=== PATIENT | male | born 1965 | race African-American/Black ===

== ENCOUNTER 2018-04-16 19:47 | Inpatient (IN) | payer BC ==
[2018-04-16] MEDS ORDERED: Famotidine/PF 20 mg/2ml Vial ONE (20:01)
[2018-04-16] MEDS ORDERED: Ondansetron PF 4 MG/2 ML Vial ONE (20:01)
[2018-04-16] MEDS ORDERED: Nitroglycerin 2% Ointment 1 INCH/1 GM Packet ONE (20:23)
[2018-04-16 20:34] LABS: ALT (SGPT) 52 U/L (8-55); AST (SGOT) 30 U/L (5-34); Albumin 4.6 g/dL (3.5-5.0); Alkaline Phosphatase 111 U/L (40-150); Anion Gap 20 mmol/L (10-20); BUN (Urea Nitrogen) 16 mg/dL (8.4-25.7); Bilirubin, Total 0.7 mg/dL (0.2-1.2); Calc. Creatinine Clearance 0 mL/min (70-130); Calcium 9.7 mg/dL (7.8-10.44); Carbon Dioxide 20 mmol/L (22-29); Chloride 101 mmol/L (98-107); Estimated GFR-MDRD Greater than 90; Globulin 3.7 g/dL (2.4-3.5); Glucose 135 mg/dL (70-105); Hemoglobin 15.4 g/dL (14.0-18.0); Lipase 24 U/L (8-78); Mean Corpuscular HGB CONC 30.4 g/dL (32.0-36.0); Mean Corpuscular Hemoglobin 27.7 pg (27.0-31.0); Mean Corpuscular Volume 91.1 fL (78.0-98.0); Mean Platelet Volume 6.5 fL (7.4-10.4); Platelet Count 367 thou/uL (130-400); Potassium 3.6 mmol/L (3.5-5.1); Protein, Total 8.3 g/dL (6.0-8.3); RBC Distribution Width 11.9 % (11.5-14.5); Red Blood Cell (RBC) Count 5.55 mill/uL (4.70-6.10); Sodium 137 mmol/L (136-145); White Blood Cell (WBC) Count 8.8 thou/uL (4.8-10.8)
[2018-04-16 20:39] LABS: Band 3 % (5-11); Eosinophils 2 % (0-10); Lymphocytes 17 % (21-51); MDiff Complete? YES; Monocytes 10 % (0-10); Neutrophil 67 % (42-75); PLT Morphology Comment Appears Adequate; RBC Morphology Normal
--- NOTE | 2018-04-16 21:08 | RAD ---
TWO VIEWS OF THE CHEST: 04/16/18 COMPARISON: 11/05/10 HISTORY: Nausea, vomiting, and chest pain. FINDINGS: Two views of the chest show normal sized cardiomediastinal silhouette. There is no evidence of consol idation, mass, or pleural effusion. The bones are unremarkable. IMPRESSION: No evidence of acute cardiopulmonary disease. POS: [facility]
[2018-04-17] MEDS ORDERED: Ondansetron PF 4 MG/2 ML Vial IVP PRN (03:25)
[2018-04-17] MEDS: Nitroglycerin 2% Ointment 1 INCH/1 GM Packet TOP SCH ×5 (03:43→23:36)
[2018-04-17] MEDS ORDERED: Insulin Regular 300 UNITS/3 ML VIAL SC PRN (07:19)
[2018-04-17] MEDS ORDERED: Dextrose 50% Abboject 50 ML SYRINGE IVP PRN (07:19)
[2018-04-17] MEDS ORDERED: Dextrose 5% in Water 1,000 ML IV PRN (07:19)
[2018-04-17] MEDS ORDERED: Morphine 4 MG/ML VIAL IV PRN (07:21)
[2018-04-17] MEDS: Amlodipine 10 MG TAB PO SCH (08:05)
[2018-04-17] MEDS: Famotidine 20 MG TAB PO SCH ×2 (08:06→20:47)
[2018-04-17] MEDS: Hydrochlorothiazide 25 MG TAB PO SCH (08:06)
[2018-04-17] MEDS: Aspirin 81 mg Enteric Coated Tablet PO SCH (08:06)
[2018-04-17 08:11] LABS: Hemoglobin A1c 5.8 % (4.0-6.0)
[2018-04-17 08:24] LABS: Cardiac Risk 3.9 (Less than 4.5)
[2018-04-17] MEDS ORDERED: Aspirin 325 MG TAB PO SCH (09:00)
[2018-04-17] MEDS ORDERED: EMPAGLIFLOZIN 25 MG PO SCH (09:00)
[2018-04-17] MEDS: Alogliptin 25 MG TAB PO SCH (09:13)
--- NOTE | 2018-04-17 10:13 | CON ---
DATE OF CONSULTATION: REASON FOR CONSULTATION: Abdominal discomfort. HISTORY OF PRESENT ILLNESS: Mr. Pulido is a pleasant 53-year-old gentleman with history of diabetes mellitus, hypertension, and hyperlipidemia, who recently presented with abdominal discomfort. The pain has waxed and waned. It may be associated with eating. He states he has not had any chest discomfort. This refutes the report in the emergency room of the patient having pain. He is adamant that he has had no chest discomfort present. He states the pain has been a crampy like discomfort noted in the mid epigastric region. He has had nausea with retching. No other present. His troponin is negative. His EKG is not felt to be specific. His bedside echo also showed a normal LVEF with no wall motion abnormalities present. PAST MEDICAL HISTORY: As above including tonsillectomy. ALLERGIES: PENICILLIN. HOME MEDICATIONS: Include, 1. Atorvastatin. 2. Hydrochlorothiazide. 3. Amlodipine. 4. Ambien. 5. Aspirin. 6. Omeprazole. REVIEW OF SYSTEMS: A 10-point review of systems is reviewed and as above, otherwise negative. PHYSICAL EXAMINATION: GENERAL: Patient is a pleasant 53-year-old male who is in no acute distress. The patient appears their stated age. VITAL SIGNS: Blood pressure 131/76, pulse 87, temperature 97.7. NEUROLOGIC: The patient is alert and oriented x3 with no focal neurologic deficits. HEENT: Sclerae without icterus. Mouth has moist mucous membranes with normal pallor. NECK: No JVD. Carotid upstroke brisk. No bruits bilaterally. LUNGS: Clear to auscultation with unlabored respirations. BACK: No scoliosis or kyphosis. CARDIAC: Regular rate and rhythm with normal S1 and S2. No S3 or S4 noted. No significant rubs, murmurs, thrills, or gallops noted throughout the precordium. PMI is not displaced. There is no parasternal heave. ABDOMEN: Mild discomfort noted in the mid epigastric region with palpation. EXTREMITIES: 2+ femoral and 2+ dorsalis pedis pulses. No cyanosis, clubbing, or edema. SKIN: No gross abnormalities. PERTINENT LABORATORY DATA: As above. IMPRESSION: 1. Epigastric pain. 2. Diabetes mellitus. 3. Hypertension. RECOMMENDATIONS: could proceed with coronary angiography, although given his negative troponin, negative EKG, and negative echo, could proceed with a more conservative approach. A stress test has been ordered and certainly is appropriate. I would also recommend GI consultation to help assist with the current symptoms. We will get the stress part today and proceed with the rest part tomorrow. If the stress part does show any abnormalities, may proceed with angio today. I did discuss with Mr. Pulido. Job ID: [id number]
[2018-04-17] MEDS ORDERED: Regadenoson 0.4 MG/5 ML SYRINGE ONE (11:47)
--- NOTE | 2018-04-17 12:00 | HP ---
CHIEF COMPLAINT: Atypical chest pain. HISTORY OF PRESENT ILLNESS: The patient is a 53-year-old male with onset approximately 2 weeks ago of severe indigestion, worse days he has ever had in his life; extremely diaphoretic, vomited several times, took hours to get relief, but he was out of town in [place] at that time, eroded out and then this episode began similarly with severe indigestion. He vomited several times, very diaphoretic. Denies shortness of breath, but has a lot of substernal discomfort. He states that it does not radiate, but he has multiple risk factors. He is already on Pepcid on a regular basis to treat GERD. He has hypertension. 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 He does not smoke, but he is very noncompliant with his care and this episode required some nitroglycerin to finally get relief in the emergency room in [place] in [place], at which time, Dr. Barros was consulted and agreed to admit him for further workup. PAST MEDICAL HISTORY: As stated above. He is noncompliant with his medical care. He is a ffm-jaajdyy-cihbzvngc diabetic. He has dyslipidemia, morbid obesity, and questionable history of obstructive sleep apnea. He is not sure if he recalls a sleep study in his past or not. This has been recommended and he has not complied to get this. GERD, HTN, shift work sleep disorder, obesity. PAST SURGICAL HISTORY: Tonsillectomy. PSYCHIATRIC HISTORY: There is no psychiatric history. 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 Denies alcohol or tobacco use. He is . ALLERGIES: THE PATIENT IS ALLERGIC TO PENICILLIN. CURRENT MEDICATIONS: Include; 1. Atorvastatin 40 mg at bedtime. 2. Hydrochlorothiazide 25 mg q.a.m. 3. Amlodipine 10 mg q.a.m. 4. 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 5. Aspirin 81 mg daily. 6. Omeprazole 20 mg daily. 7. Glyxambi 25/5 one p.o. daily. REVIEW OF SYSTEMS: GENERAL: At the time of admission, admits to being weak with nausea and vomiting, but denies fever or chills. HEENT: No sores in ear, nose, and throat. No drainage. CHEST: Denies shortness of breath or coughing. CARDIOVASCULAR: Has substernal burning. Has severe indigestion. Denies palpitations. GASTROINTESTINAL: Reports both nausea and vomiting. No diarrhea. GENITOURINARY: No dysuria. No blood in urine or stool. MUSCULOSKELETAL: No complaints in any arms, legs, or major joints. SKIN: No acute rashes or lesions. NEUROLOGIC: Denies any headaches or focal weakness or paresthesia/anesthesia. HEMOLYMPHATIC: No new areas of bruising, bleeding, or ecchymosis. PHYSICAL EXAMINATION: VITAL SIGNS: At the time of admission, blood pressure 143/78, pulse 84, respirations 16, temperature 97.9 with pain scale of 3/10, and O2 saturation 94 % on room air. GENERAL: This is an obese male, alert, oriented, and cooperative. HEENT: Normocephalic, atraumatic. Pupils are equal, round, and reactive to light. Extraocular muscles are intact. TMs, nares, and pharynx are clear. NECK: Supple. Trachea midline. No bruits bilaterally. No mass. CHEST: Good breath sounds bilaterally. Nontender to palpation. HEART: Regular rate and rhythm. Distant heart sounds. No audible murmurs. ABDOMEN: Obese, nontender. Unable to appreciate any organomegaly. GENITOURINARY: Deferred. EXTREMITIES: Without clubbing, cyanosis, or edema. Normal range of motion present. Symmetric muscular tone development noted. SKIN: No acute rashes or lesions. He is mildly diaphoretic. NEUROLOGICAL: Cranial nerves are intact. Gait and cerebellar function are untested at this time. Sensory exam is generally intact. Mental status shows nonfocal. DIAGNOSTIC DATA: EKG showed an 81 beats per minute, incomplete right bundle- branch block with nonspecific ST abnormalities. The chest x-ray showed no acute findings. Cardiac enzymes are negative thus far. Sodium 137, potassium 3.6, chloride 101 , CO2 of 20, BUN 16, creatinine 0.93 with a GFR of greater than 90, and glucose 135. Liver functions are normal. Lipase 24. WBCs 8.8, hemoglobin 15.4, hematocrit 50.5, and platelet count 367. ASSESSMENT: 1. Probable unstable angina in high-risk individual, who has been noncompliant with his medical care vs severe GERD. 2. Hypertension. 3. Ejk-whktvgu-jfmshivsn diabetic. 4. Dyslipidemia. 5. Probable obstructive sleep apnea, noncompliant with testing. PLAN: We will get a Cardiolite stress testing. Cardiology consultation. Echocardiogram. Maintain him on his topical nitro. Continue daily aspirin, and we will put on an O2 monitor to check for desats. He will be serially re- evaluated. Job ID: [id number] [facility]
--- NOTE | 2018-04-17 15:39 | NM ---
NUCLEAR MEDICINE CARDIAC PERFUSION EXAMINATION WITH EJECTION FRACTION 04/17/18 HISTORY: 53-year-old male with chest pain, diabetes, and dyslipidemia. TECHNIQUE: A stress only nuclear medicine cardiac perfusion examination was performed using 30 millicuries techn etium 99m Sestamibi and Adenosine. FINDINGS: The nonattenuated corrected images show no perfusion defects with stress. Gated images show normal wall motion with ejection fraction of 61%. EDV is 100 mL. LHR is 0.2. IMPRESSION: No perfusion defects seen with stress. POS: [facility]
[2018-04-17] MEDS: Atorvastatin Calcium 40 MG TAB PO SCH (20:47)
[2018-04-18] MEDS: Nitroglycerin 2% Ointment 1 INCH/1 GM Packet TOP SCH ×5 (06:15→20:00)
--- NOTE | 2018-04-18 08:52 | ULT ---
ABDOMINAL ULTRASOUND: DATE: 04/18/2018. HISTORY: Abdominal pain. FINDINGS: The liver demonstrates increased echogenicity and mildly coarsened echotexture likely attributable to diffuse fatty infiltration. There is a small amount of echogenic material seen dependent within the gallbladder lumen likely rela lo to a tiny amount of sludge. No gallbladder calculus is seen. There is no gallbladder wall thicke felisa or pericholecystic fluid seen. The common duct measures 0.5 cm in diameter. The limited visualized portions of the pancreas, visualized portions of the IVC, abdominal aorta, spl een, and bilateral kidneys demonstrate a normal sonographic appearance. The right kidney measures 11 .9 cm in length and the left kidney measures 11.5 cm in length. IMPRESSION: 1. Small amount of gallbladder sludge. No gallbladder calculi are seen, and the common duct is norm al in caliber. 2. Mild fatty infiltration of the liver. POS: [facility]
[2018-04-18] MEDS ORDERED: Ondansetron HCl/PF 4 MG/2 ML Vial IVP PRN (10:23)
[2018-04-18] MEDS ORDERED: Promethazine HCl 25 MG/ML VIAL SLOW IVP PRN (10:23)
[2018-04-18] MEDS ORDERED: Promethazine HCl 25 MG/ML VIAL IM PRN (10:23)
[2018-04-18] MEDS: Aspirin 81 mg Enteric Coated Tablet PO SCH (10:40)
[2018-04-18] MEDS: Hydrochlorothiazide 25 MG TAB PO SCH (10:41)
[2018-04-18] MEDS: Alogliptin 25 MG TAB PO SCH (10:41)
[2018-04-18] MEDS: Famotidine 20 MG TAB PO SCH (10:41)
[2018-04-18] MEDS: Amlodipine 10 MG TAB PO SCH (10:41)
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
--- NOTE | 2018-04-18 14:57 | STRESS ---
Acquisition Time: 2018-04-17 10:31:59 Total Exercise Time: 00:03:02 Test Indications: CHEST PAIN Medications: Protocol: ADENOSINE Max HR: 102 BPM 61% of Pred: 165 BPM Max BP: 138/080 mmHG Max Work Load: 1.0 METS RESTING ECG: NORMAL SINUS RHYTHM AT 87 BPM SYMPTOMS: NONE NORMAL BP RESPONSE ECTOPY: NONE ECG STRESS: NO SIGNIFUCANT CHANGES INTERPRETATION: NEGATIVE EKG/AWAIT NUCLEAR IMAGES FOR DEFINITIVE DIAGNOSIS COMMENTS: PATIENT WAS GIVEN LEXISCAN Confirmed by SAM BECK ELLEN ([id number]) on 04/18/2018 2:57:26 PM Referred By: MD Norma IRAHETA Confirmed By:FLASH BECK PA-C
--- NOTE | 2018-04-18 15:24 | CON ---
DATE OF CONSULTATION: 04/17/2018 REFERRING PHYSICIANS: 1. Yazan Aviles MD. 2. Adelfo Barros MD. REASON FOR CONSULTATION: Severe indigestion, abdominal pain, nausea, and vomiting. HISTORY OF PRESENT ILLNESS: Amrit Pulido is a very pleasant 53-year-old male with abdominal pain, nausea, vomiting, and severe indigestion, although the admitting history and physical says he has chest pain, but the patient denies ever having any chest pain. He was also seen by Dr. Aviles and again he told Dr. Aviles that he has more of_ indigestion and abdominal pain. The patient is known to have acid reflux over the years. He takes omeprazole off and on. 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 He was in [place], [place] over couple of weeks ago and had severe indigestion, and he took omeprazole, which did not help. He also has some epigastric discomfort and abdominal pain.The pain was cramping in nature with nausea and vomiting.He had recurrence of symptoms two days ago. These symptoms were exactly same thing that what he had 2 weeks ago. He had severe indigestion and abdominal cramping pain over the upper abdomen. He has some nausea and vomiting also. He had no fever or chills. The patient tried taking omeprazole, which did not help him. Since admission, his symptoms had resolved. He has no abdominal pain. . The patient tells me that he had seen me more than 10 years ago and had a colonoscopy and EGD. He was told he had acid reflux and apparently he has been placed on omeprazole by me, it is more than 10 years ago. The patient had not seen me in about 10 years. Bowel movements are regular. There is no history of hematochezia or any melena. The patient does have a family history of gallstones. Apparently, his mother had gallstones and also sister had gallstones. No relevant history. ALLERGIES: PENICILLIN. SOCIAL HISTORY: The patient does not smoke or drink alcohol. MEDICAL ILLNESSES: 1. Hypertension. 2. Diabetes mellitus. 3. Hyperlipidemia. 4. Obesity. 5. Chronic acid reflux. SURGERIES: 1. Tonsillectomy. 2. 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 PAST PSYCHIATRIC HISTORY: No evidence of depression or anxiety. FAMILY HISTORY: Father and mother both had diabetes and father of heart attack, sister also had diabetes. MEDICATIONS: List reviewed. REVIEW OF SYSTEMS: A 10-point system review. CONSTITUTIONAL: No history of weight loss, has good energy level. Good exercise tolerance. HEAD: No chronic headache. No syncope. No TIA. EYES: No double vision. No diplopia. EARS: No hearing loss. No ear pain. No discharge. NOSE: No nosebleed. THROAT: No sore throat or any painful swallowing. LUNGS: No chronic coughing. No hemoptysis. No dyspnea. CARDIOVASCULAR: No chest pain. No palpitation. No dyspnea, orthopnea, or PND. GI: As in history of present illness. : No dysuria, hematuria, or frequency in urination. MUSCULOSKELETAL: Unknown. ENDOCRINE: Unknown. PHYSICAL EXAMINATION: GENERAL: The patient is obese, appears to be comfortable, in no acute distress. At the present time, he has abdominal pain. VITAL SIGNS: Stable. Afebrile. Temperature 97.8 degrees Fahrenheit, pulse is 82, blood pressure is 150/90. HEENT: Conjunctivae clear. NECK: Supple. No adenitis or thyromegaly noted. CARDIOVASCULAR SYSTEM: First and second heart sounds heard. LUNGS: Clear to auscultate. ABDOMEN: Very benign. Abdomen is nondistended. Abdomen is nontender. There were no operative masses. EXTREMITIES: No edema. LABORATORY DATA: CBC; WBC 8800, hemoglobin 15.4, hematocrit of 50.5, MCV 91.1, platelet count is 367,000, polymorphs 57, bands 3, lymphocytes 17. Chemistry panel shows triglycerides 92, cholesterol is 106, LDL is 61. TSH is 0.95. Hemoglobin A1c is 5.8. His EKG and cardiac enzymes are negative. CLINICAL IMPRESSION: A 53-year-old male with severe indigestion, nausea, vomiting, and abdominal pain. He denies having chest pain. The patient most likely has acid reflux and possibly gallstone. Although, he has had severe indigestion, he did not have any response to PPI.. RECOMMENDATION: Abdominal sonogram tomorrow followed by the EGD tomorrow. I will make further recommendations after the EGD and abdominal sonogram. Job ID: [id number] [facility]
[2018-04-18] MEDS: Atorvastatin Calcium 40 MG TAB PO SCH (20:50)
[2018-04-18] MEDS ORDERED: Lidocaine 1% PF 5 ML VIAL ONE (20:54)
[2018-04-18] MEDS ORDERED: PROPOFOL 200 MG/20 ML VIAL ONE (20:54)
--- NOTE | 2018-04-19 01:38 | OP ---
DATE OF PROCEDURE: 04/18/2018 OPERATIVE PROCEDURE: Esophagogastroduodenoscopy with biopsy. PREOPERATIVE DIAGNOSES: Severe indigestion, abdominal pain, nausea, and vomiting. POSTOPERATIVE DIAGNOSES: 1. Small hiatal hernia. 2. Irregular Z-line with mild esophagitis distal esophagus. 3. Normal stomach and duodenum. DESCRIPTION OF PROCEDURE: The patient was placed on his left lateral position and was given sedation by Anesthesia Department. A Pentax video gastroscope under direct vision passed down the oropharynx to the GE junction into the stomach and subsequently into the descending duodenum. Although, the patient gave history of severe indigestion, on endoscopy, the mucosa actually appears normal. The GE junction, the mucosa irregular. There is a small erosion and mild esophagitis seen. A small hiatal hernia. Retroflexion failed to show any pathology in the fundus or cardia. In the gastric body and gastric antrum, no pathology seen. In the pyloric channel, no pathology seen. In the duodenal bulb, descending duodenum, no pathology seen. The scope was withdrawn back to the esophagus and biopsies obtained in the GE junction. The stomach was decompressed and scope removed. RECOMMENDATIONS: 1. Continue pantoprazole 40 mg once a day. 2. If his symptoms persist , will consider HIDA scan, as the abdominal sonogram showed biliary sludge, no stone seen. Job ID: [id number] [facility]
[2018-04-19 05:57] LABS: #Basophils 0.1 thou/uL (0.0-0.2); #Eosinphils 0.1 thou/uL (0.0-0.7); #Lymphocytes 2.9 thou/uL (1.20-3.40); #Monocytes 0.9 thou/uL (0.11-0.59); #Neutrophils 2.4 thou/uL (1.40-6.50); %Basophils 0.9 % (0.0-1.0); %Eosinophils 1.1 % (0.0-10.0); %Lymphocytes 45.6 % (21.0-51.0); %Monocytes 14.6 % (0.0-10.0); %Neutrophils 37.8 % (42.0-75.0); Mean Corpuscular HGB CONC 32.5 g/dL (32.0-36.0); Mean Corpuscular Hemoglobin 29.6 pg (27.0-31.0); Mean Corpuscular Volume 90.9 fL (78.0-98.0); Mean Platelet Volume 7.1 fL (7.4-10.4); Platelet Count 364 thou/uL (130-400); RBC Distribution Width 11.7 % (11.5-14.5); Red Blood Cell (RBC) Count 4.39 mill/uL (4.70-6.10); White Blood Cell (WBC) Count 6.2 thou/uL (4.8-10.8)
[2018-04-19 06:20] LABS: ALT (SGPT) 28 U/L (8-55); AST (SGOT) 21 U/L (5-34); Albumin 3.6 g/dL (3.5-5.0); Alkaline Phosphatase 92 U/L (40-150); Anion Gap 12 mmol/L (10-20); BUN (Urea Nitrogen) 13 mg/dL (8.4-25.7); Bilirubin, Total 0.7 mg/dL (0.2-1.2); Calc. Creatinine Clearance 181 mL/min (70-130); Carbon Dioxide 26 mmol/L (22-29); Chloride 100 mmol/L (98-107); Estimated GFR-MDRD Greater than 90; Globulin 2.9 g/dL (2.4-3.5); Glucose 106 mg/dL (70-105); Potassium 3.4 mmol/L (3.5-5.1); Protein, Total 6.5 g/dL (6.0-8.3); Sodium 135 mmol/L (136-145)
[2018-04-19] MEDS ORDERED: Bupivacaine/Epinephrine 0.25% 30 ML VIAL ONE (07:25)
[2018-04-19] MEDS: Aspirin 81 mg Enteric Coated Tablet PO SCH (09:00)
[2018-04-19] MEDS: Hydrochlorothiazide 25 MG TAB PO SCH (09:00)
[2018-04-19] MEDS: Alogliptin 25 MG TAB PO SCH (09:00)
[2018-04-19] MEDS: Amlodipine 10 MG TAB PO SCH (09:00)
[2018-04-19] MEDS ORDERED: Lidocaine 2% Jelly 5 ML TUBE ONE (09:20)
[2018-04-19] MEDS ORDERED: Fentanyl 100 MCG/2 ML VIAL ONE (09:20)
[2018-04-19] MEDS ORDERED: Midazolam HCl 2 mg/2 ml Vial ONE (09:20)
[2018-04-19] MEDS ORDERED: Ketorolac Tromethamine 30 MG/ML VIAL ONE (09:37)
[2018-04-19] MEDS ORDERED: Levofloxacin 500 mg/D5W 100 ml Premix Bag ONE (09:37)
[2018-04-19] MEDS ORDERED: Ondansetron HCl/PF 4 MG/2 ML Vial IVP PRN (11:40)
[2018-04-19] MEDS ORDERED: Promethazine HCl 25 MG/ML VIAL SLOW IVP PRN (11:40)
[2018-04-19] MEDS ORDERED: Promethazine HCl 25 MG/ML VIAL IM PRN (11:40)
[2018-04-19 12:17] VITALS: TEMP 97.5
--- NOTE | 2018-04-19 13:09 | OP ---
DATE OF PROCEDURE: 04/19/2018 PREOPERATIVE DIAGNOSIS: Symptomatic gallbladder sludge. POSTOPERATIVE DIAGNOSIS: Symptomatic gallbladder sludge. PROCEDURE PERFORMED: Laparoscopic cholecystectomy. ANESTHESIA: General endotracheal. INDICATIONS: The patient is an obese 53-year-old black male. He presents with recurrent episodes of epigastric abdominal pain and evidence of gallbladder sludge on ultrasound. After discussing options, he has elected to proceed with laparoscopic cholecystectomy. PROCEDURE IN DETAIL: Informed consent was obtained. The patient was taken to the operating room where general endotracheal anesthesia was obtained with the patient in the supine position. The abdomen was prepped with Betadine and draped in the usual sterile fashion. 0.25% Marcaine with epinephrine was infiltrated below the umbilicus and a 10 mm infraumbilical incision was created. A Veress needle was passed through this incision into the peritoneal cavity. A pneumoperitoneum was established using carbon dioxide up to a pressure of 15 mmHg. Local anesthetic was infiltrated and 3 additional 5 mm right upper quadrant incisions were created. Through the mid incision, a 5 mm port was passed into the peritoneal cavity. The camera was passed through this port and under direct vision, an 11 port was passed through the infraumbilical incision. The camera was replaced through this port, and under direct vision, 2 additional 5 mm ports were passed through the incisions already created. The gallbladder was grasped and retracted in a cephalad direction. Minimal adhesions were bluntly stripped away from the apex of the gallbladder, and the apex was retracted laterally and inferiorly. Careful dissection was carried out to the apex of the gallbladder to identify the cystic duct and cystic artery. These were each carefully dissected circumferentially. The duct was of normal caliber. Both the duct and the artery were divided between clips, leaving 2 on the side to remain within the abdomen. The gallbladder was then dissected out of the gallbladder fossa using electrocautery and removed through the infraumbilical port site. The fascia was closed with 0 Vicryl suture and a GraNee needle. The right upper quadrant was inspected and irrigated. All irrigant was aspirated. All ports and instruments were removed under direct vision. Pneumoperitoneum was carefully evacuated. Additional local anesthetic was infiltrated into each port site. The skin edges were approximated with 4-0 Monocryl subcuticular sutures, and Dermabond was placed externally. There were no complications. The patient tolerated the procedure well and was taken to the recovery room in stable condition. FINDINGS: The patient had no acute inflammation associated with the gallbladder. There were some adhesions to it that was easily taken down. The duct was generous in size, but cholangiogram was not obtained as there was no evidence of cholelithiasis nor any liver function test elevation. Blood loss was negligible. There was some bleeding through one of the port sites in the right paramedian location. This was presumed to be an injury to the epigastric vessels. This bleeding was ligated with an 0 Vicryl suture using a GraNee needle with cessation of high-flow bleeding. The patient tolerated the procedure well and was taken to recovery room in stable condition. Job ID: [id number]
[2018-04-19] MEDS ORDERED: traMADol HCl 50 MG TAB PO PRN ×2 (15:07)
[2018-04-19 16:16] VITALS: BP 119/70
== END 2018-04-19 15:54 | disposition home or self-care (01) | DRG 357 ==
LOC: SCSER 19:47 → ERHOLD 21:10 → OBSVTOIN 21:10 → 2NO 23:31 → 2SW 23:56 → 2NO 04-17 14:13 → SURG A 04-18 11:15
PROVIDERS: ADMIT Specialist; ATTEND Specialist
PROC: 0DB58ZX Excision of Esophagus, Via Natural or Artificial Opening Endoscopic, Diagnostic (ICD-10-PCS; principal; 2018-04-16)
PROC: 0FT44ZZ Resection of Gallbladder, Percutaneous Endoscopic Approach (ICD-10-PCS; 2018-04-16)
DX: K44.9 Diaphragmatic hernia without obstruction or gangrene (principal); Z68.41 Body mass index [BMI] 40.0-44.9, adult; K21.0 Gastro-esophageal reflux disease with esophagitis; E11.9 Type 2 diabetes mellitus without complications; Z79.4 Long term (current) use of insulin; E78.5 Hyperlipidemia, unspecified; E66.01 Morbid (severe) obesity due to excess calories; G47.33 Obstructive sleep apnea (adult) (pediatric); I10 Essential (primary) hypertension; K83.9 Disease of biliary tract, unspecified
CPT/HCPCS: 36415; 36416; 71046; 76700; 78452; 80053; 80061; 83036; 83690; 84443; 84484; 85025; 88304; 88305; 88312; 88313; 93005; 93017; 93306; 96361; 96374; 96375; A9500; J0131; J1885; J1956; J2001; J2250; J2270; J2405; J2704; J2785; J3010; S0028